=== PATIENT | male | born 1940 | race Caucasian/White ===

== ENCOUNTER 2024-05-26 14:07 | Inpatient (IN) ==
[2024-05-26] MEDS ORDERED: IOPAMIDOL 100 ML BOTTLE IV ONE (14:08)
[2024-05-26] MEDS: 0.9 % SODIUM CHLORIDE 500 ML IV ONE ×3 (14:29→16:42)
[2024-05-26] MEDS: ACETAMINOPHEN 1,000 MG/100 ML BAG IV ONE (14:45)
[2024-05-26 15:04] LABS: Basophils # (Auto) 0.04 K/mcL (0.00-0.30); Basophils % (Auto) 0.4 % (0.0-2.0); Eosinophils # (Auto) 0.11 K/mcL (0.00-0.70); Eosinophils % (Auto) 1.2 % (0.0-7.0); Hematocrit 40.3 % (40.1-51.0); Hemoglobin 12.9 g/dL (13.7-17.5); Lymphocytes % (Auto) 3.2 % (15.5-49.0); Mean Cell Volume 96.6 fL (80.0-100.0); Mean Platelet Volume 11.3 fL (8.8-12.5); Monocytes # (Auto) 0.65 K/mcL (0.10-0.90); Monocytes % (Auto) 6.9 % (1.0-12.0); Neutrophils % (Auto) 87.7 % (38.0-78.0); Platelet Count 117 K/mcL (140-440); RBC 4.17 M/mcL (4.63-6.08); Red Cell Distribution Width 16.7 % (11.5-14.5); WBC 9.4 K/mcL (4.5-11.0)
[2024-05-26 15:12] LABS: Prothrombin Time 13.9 sec (11.9-14.5)
[2024-05-26 15:14] LABS: ALT/SGPT 12 U/L (<40); AST/SGOT 19 U/L (<40); Albumin 4.3 gm/dL (3.2-5.2); Albumin/Globulin Ratio 2.3 (1.0-2.3); Alkaline Phosphatase 87 U/L (39-117); Bilirubin,Total 0.5 mg/dL (0.1-1.0); Blood Urea Nitrogen 17 mg/dL (8-23); Calcium 8.9 mg/dL (8.6-10.4); Carbon Dioxide 27 mmol/L (22-30); Chloride 102 mmol/L (96-108); Globulin 1.9 gm/dL (2.2-3.7); Glomerular Filtration Rate 55; Glucose 167 mg/dL (70-105); Potassium 4.8 mmol/L (3.3-5.1); Sodium 140 mmol/L (133-145)
[2024-05-26] MEDS: cefTRIAXone 2 GM in DEXTROSE 5% IN WATER 50 ML IV ONE (15:34)
[2024-05-26 16:23] LABS: Appearance,Urine Cloudy (Clear); Bilirubin,Urine Negative (Negative); Color,Urine Yellow; Culture Indicated,Urine Yes; Glucose,Urine (UA) Negative (Negative); Ketones,Urine 15 mg/dL (Negative); Leukocyte Esterase,Urine Small /uL (Negative); Nitrate,Urine Negative (Negative); Protein,Urine 100 mg/dL (Negative); Specific Gravity,Urine 1.015 (1.000-1.035); Urine Blood Small ery/mcL (Negative); Urine RBC 5 /hpf (0-3); Urine Squamous Epithelial Cell 1 /hpf (0-4); Urine WBC 50 /hpf (0-4); Urobilinogen,Urine Normal
[2024-05-26] MEDS: 0.9 % SODIUM CHLORIDE 250 ML IV SCH (16:42)
[2024-05-26] MEDS: NOREPINEPHRINE 250 ML IV SCH (16:42)
[2024-05-26] MEDS: 0.9 % SODIUM CHLORIDE 1,000 ML IV ONE (16:42)
[2024-05-26] MEDS: LEVOFLOXACIN 750 MG/150 ML BAG IV ONE (16:48)
[2024-05-26] MEDS ORDERED: DEXTROSE 31 GM ORAL.SUSP PO PRN (17:46)
[2024-05-26] MEDS ORDERED: LACTULOSE 20 GM/30 ML ORAL.SOL PO PRN (17:46)
[2024-05-26] MEDS ORDERED: IPRATROPIUM/ALBUTEROL 3 ML AMPUL.NEB NEB PRN (17:46)
[2024-05-26] MEDS ORDERED: DEXTROSE 50% 50 ML VIAL IV PRN (17:46)
[2024-05-26] MEDS ORDERED: ONDANSETRON 4 MG/2 ML VIAL IV PRN (17:46)
[2024-05-26] MEDS: 0.9 % SODIUM CHLORIDE 1,000 ML IV SCH (18:08)
[2024-05-26] MEDS: INSULIN LISPRO 1 UNIT/0.01 ML UNIT SQ SCH (18:16)
[2024-05-26] MEDS ORDERED: NITROGLYCERIN 0.4 MG TAB.SUBL SL PRN (18:19)
[2024-05-26] MEDS: ACETAMINOPHEN 325 MG TABLET PO PRN (18:58)
[2024-05-26] MEDS: MEMANTINE 10 MG TABLET PO SCH (20:08)
[2024-05-26] MEDS: DIVALPROEX 125 MG CAP.SPRINK PO SCH (20:08)
[2024-05-26] MEDS: QUEtiapine 100 MG TABLET PO SCH (20:08)
[2024-05-26] MEDS: DOCUSATE SODIUM 100 MG CAPSULE PO SCH ×2 (20:08→20:09)
[2024-05-26] MEDS: TAMSULOSIN 0.4 MG CAPSULE PO SCH (20:08)
[2024-05-26] MEDS: lamoTRIgine 100 MG TABLET PO SCH (20:08)
[2024-05-26] MEDS: 0.9 % SODIUM CHLORIDE 10 ML SYRINGE IV SCH (20:09)
[2024-05-27] MEDS: NOREPINEPHRINE 250 ML IV ONE (00:24)
[2024-05-27] MEDS: 0.9 % SODIUM CHLORIDE 250 ML IV SCH (00:24)
[2024-05-27] MEDS: NOREPINEPHRINE 250 ML IV SCH (00:24)
[2024-05-27 06:59] LABS: Basophils # (Auto) 0.03 K/mcL (0.00-0.30); Basophils % (Auto) 0.2 % (0.0-2.0); Eosinophils # (Auto) 0.01 K/mcL (0.00-0.70); Eosinophils % (Auto) 0.1 % (0.0-7.0); Hematocrit 36.1 % (40.1-51.0); Hemoglobin 11.5 g/dL (13.7-17.5); Lymphocytes # (Auto) 0.54 K/mcL (1.50-4.80); Lymphocytes % (Auto) 3.3 % (15.5-49.0); Mean Cell Volume 98.1 fL (80.0-100.0); Mean Corpuscular HGB Conc 31.9 g/dL (31.0-36.0); Mean Platelet Volume 11.3 fL (8.8-12.5); Monocytes # (Auto) 0.97 K/mcL (0.10-0.90); Monocytes % (Auto) 5.9 % (1.0-12.0); Neutrophils % (Auto) 89.9 % (38.0-78.0); Platelet Count 91 K/mcL (140-440); RBC 3.68 M/mcL (4.63-6.08); WBC 16.4 K/mcL (4.5-11.0)
[2024-05-27 07:08] LABS: ALT/SGPT 13 U/L (<40); AST/SGOT 18 U/L (<40); Albumin 3.6 gm/dL (3.2-5.2); Albumin/Globulin Ratio 2.3 (1.0-2.3); Alkaline Phosphatase 65 U/L (39-117); Bilirubin,Total 0.3 mg/dL (0.1-1.0); Blood Urea Nitrogen 17 mg/dL (8-23); Calcium 7.8 mg/dL (8.6-10.4); Carbon Dioxide 24 mmol/L (22-30); Chloride 107 mmol/L (96-108); Globulin 1.6 gm/dL (2.2-3.7); Glomerular Filtration Rate 45; Glucose 125 mg/dL (70-105); Potassium 4.4 mmol/L (3.3-5.1); Sodium 141 mmol/L (133-145)
[2024-05-27 07:40] LABS: Estimated Average Glucose(eAG) 137 mg/dL; Hemoglobin A1C 6.4 % Hgb (4.0-6.0)
[2024-05-27] MEDS: VITAMIN D3 25 MCG TABLET PO SCH (08:23)
[2024-05-27] MEDS: POLYETHYLENE GLYCOL 3350 17 GM PACKET PO SCH (08:23)
[2024-05-27] MEDS: ENOXAPARIN 40 MG/0.4 ML SYRINGE SQ SCH (08:24)
[2024-05-27] MEDS: ATORVASTATIN 20 MG TABLET PO SCH (08:24)
[2024-05-27] MEDS: MULTIVIT,THER IRON,CA,FA & MIN 1 TABLET PO SCH (08:24)
[2024-05-27] MEDS ORDERED: ENOXAPARIN 30 MG/0.3 ML SYRINGE SQ SCH (09:00)
[2024-05-27] MEDS: cefTRIAXone 2 GM in DEXTROSE 5% IN WATER 50 ML IV SCH (10:28)
[2024-05-27] MEDS: SENNOSIDES 1 TABLET PO PRN (20:18)
[2024-05-28 06:46] LABS: Basophils # (Auto) 0.04 K/mcL (0.00-0.30); Basophils % (Auto) 0.3 % (0.0-2.0); Eosinophils # (Auto) 0.04 K/mcL (0.00-0.70); Eosinophils % (Auto) 0.3 % (0.0-7.0); Hematocrit 33.1 % (40.1-51.0); Hemoglobin 10.2 g/dL (13.7-17.5); Lymphocytes # (Auto) 0.57 K/mcL (1.50-4.80); Lymphocytes % (Auto) 4.7 % (15.5-49.0); Mean Cell Volume 102.8 fL (80.0-100.0); Mean Corpuscular HGB Conc 30.8 g/dL (31.0-36.0); Mean Platelet Volume 10.9 fL (8.8-12.5); Monocytes # (Auto) 0.83 K/mcL (0.10-0.90); Monocytes % (Auto) 6.9 % (1.0-12.0); Neutrophils % (Auto) 87.2 % (38.0-78.0); Platelet Count 76 K/mcL (140-440); RBC 3.22 M/mcL (4.63-6.08); Red Cell Distribution Width 17.7 % (11.5-14.5)
[2024-05-28 06:53] LABS: ALT/SGPT 13 U/L (<40); AST/SGOT 18 U/L (<40); Albumin 2.9 gm/dL (3.2-5.2); Albumin/Globulin Ratio 1.7 (1.0-2.3); Alkaline Phosphatase 66 U/L (39-117); Bilirubin,Total 0.3 mg/dL (0.1-1.0); Blood Urea Nitrogen 18 mg/dL (8-23); Calcium 7.3 mg/dL (8.6-10.4); Carbon Dioxide 21 mmol/L (22-30); Chloride 106 mmol/L (96-108); Globulin 1.7 gm/dL (2.2-3.7); Glomerular Filtration Rate 55; Glucose 115 mg/dL (70-105); Potassium 3.7 mmol/L (3.3-5.1); Sodium 138 mmol/L (133-145)
[2024-05-28] MEDS: LEVOFLOXACIN 750 MG/150 ML BAG IV SCH (09:36)
[2024-05-28] MEDS: TAMSULOSIN 0.4 MG CAPSULE PO SCH (20:07)
[2024-05-28] MEDS: guaiFENesin/DEXTROMETHORPHAN 5ML UD CUP PO PRN (23:02)
[2024-05-29 07:06] LABS: Basophils # (Auto) 0.04 K/mcL (0.00-0.30); Basophils % (Auto) 0.4 % (0.0-2.0); Hematocrit 31.4 % (40.1-51.0); Hemoglobin 10.4 g/dL (13.7-17.5); Lymphocytes # (Auto) 0.67 K/mcL (1.50-4.80); Lymphocytes % (Auto) 6.8 % (15.5-49.0); Mean Cell Volume 95.2 fL (80.0-100.0); Mean Corpuscular HGB Conc 33.1 g/dL (31.0-36.0); Mean Platelet Volume 11.3 fL (8.8-12.5); Monocytes # (Auto) 0.73 K/mcL (0.10-0.90); Monocytes % (Auto) 7.4 % (1.0-12.0); Neutrophils % (Auto) 82.7 % (38.0-78.0); Platelet Count 77 K/mcL (140-440); Red Cell Distribution Width 17.9 % (11.5-14.5); WBC 9.8 K/mcL (4.5-11.0)
[2024-05-29 07:31] LABS: ALT/SGPT 18 U/L (<40); AST/SGOT 23 U/L (<40); Albumin 2.8 gm/dL (3.2-5.2); Albumin/Globulin Ratio 1.3 (1.0-2.3); Alkaline Phosphatase 71 U/L (39-117); Bilirubin,Total 0.3 mg/dL (0.1-1.0); Blood Urea Nitrogen 18 mg/dL (8-23); Calcium 7.9 mg/dL (8.6-10.4); Carbon Dioxide 25 mmol/L (22-30); Chloride 105 mmol/L (96-108); Globulin 2.2 gm/dL (2.2-3.7); Glomerular Filtration Rate 55; Glucose 117 mg/dL (70-105); Potassium 3.7 mmol/L (3.3-5.1); Sodium 138 mmol/L (133-145)
[2024-05-29] MEDS: LEVOFLOXACIN 750 MG TABLET PO SCH (08:46)
[2024-05-29] MEDS: ATORVASTATIN 40 MG TABLET PO SCH (08:47)
[2024-05-29] MEDS: IBUPROFEN 600 MG TABLET PO PRN (15:34)
[2024-05-30 07:13] LABS: Basophils # (Auto) 0.04 K/mcL (0.00-0.30); Basophils % (Auto) 0.4 % (0.0-2.0); Eosinophils # (Auto) 0.28 K/mcL (0.00-0.70); Hematocrit 37.5 % (40.1-51.0); Hemoglobin 12.3 g/dL (13.7-17.5); Lymphocytes # (Auto) 0.52 K/mcL (1.50-4.80); Lymphocytes % (Auto) 5.5 % (15.5-49.0); Mean Cell Volume 95.2 fL (80.0-100.0); Mean Corpuscular HGB Conc 32.8 g/dL (31.0-36.0); Mean Platelet Volume 11.2 fL (8.8-12.5); Monocytes # (Auto) 0.83 K/mcL (0.10-0.90); Monocytes % (Auto) 8.8 % (1.0-12.0); Neutrophils % (Auto) 81.3 % (38.0-78.0); Platelet Count 105 K/mcL (140-440); RBC 3.94 M/mcL (4.63-6.08); Red Cell Distribution Width 17.9 % (11.5-14.5); WBC 9.5 K/mcL (4.5-11.0)
[2024-05-30 07:40] LABS: ALT/SGPT 59 U/L (<40); AST/SGOT 64 U/L (<40); Albumin 3.2 gm/dL (3.2-5.2); Albumin/Globulin Ratio 1.2 (1.0-2.3); Alkaline Phosphatase 100 U/L (39-117); Bilirubin,Total 0.4 mg/dL (0.1-1.0); Blood Urea Nitrogen 16 mg/dL (8-23); Calcium 8.8 mg/dL (8.6-10.4); Carbon Dioxide 25 mmol/L (22-30); Chloride 104 mmol/L (96-108); Globulin 2.7 gm/dL (2.2-3.7); Glomerular Filtration Rate 61; Glucose 112 mg/dL (70-105); Potassium 3.8 mmol/L (3.3-5.1); Sodium 140 mmol/L (133-145)
[2024-05-31 06:56] LABS: Basophils # (Auto) 0.04 K/mcL (0.00-0.30); Basophils % (Auto) 0.5 % (0.0-2.0); Eosinophils # (Auto) 0.23 K/mcL (0.00-0.70); Eosinophils % (Auto) 3.1 % (0.0-7.0); Hematocrit 34.1 % (40.1-51.0); Hemoglobin 11.2 g/dL (13.7-17.5); Lymphocytes % (Auto) 6.8 % (15.5-49.0); Mean Corpuscular HGB Conc 32.8 g/dL (31.0-36.0); Mean Platelet Volume 10.4 fL (8.8-12.5); Monocytes # (Auto) 0.73 K/mcL (0.10-0.90); Monocytes % (Auto) 9.9 % (1.0-12.0); Neutrophils % (Auto) 78.5 % (38.0-78.0); Platelet Count 115 K/mcL (140-440); RBC 3.59 M/mcL (4.63-6.08); Red Cell Distribution Width 18.1 % (11.5-14.5); WBC 7.4 K/mcL (4.5-11.0)
[2024-05-31 07:27] LABS: ALT/SGPT 68 U/L (<40); AST/SGOT 55 U/L (<40); Albumin/Globulin Ratio 1.2 (1.0-2.3); Alkaline Phosphatase 72 U/L (39-117); Bilirubin,Direct < 0.2 mg/dL (0-0.3); Bilirubin,Total 0.3 mg/dL (0.1-1.0); Blood Urea Nitrogen 16 mg/dL (8-23); Calcium 8.6 mg/dL (8.6-10.4); Carbon Dioxide 28 mmol/L (22-30); Chloride 106 mmol/L (96-108); Globulin 2.5 gm/dL (2.2-3.7); Glomerular Filtration Rate 68; Glucose 128 mg/dL (70-105); Lactate Dehydrogenase 234 U/L (135-225); Phosphorous 3.1 mg/dL (2.5-4.5); Potassium 4.1 mmol/L (3.3-5.1); Sodium 142 mmol/L (133-145); Triglycerides 178 mg/dL (<150); Uric Acid 3.7 mg/dL (2.5-8.0)
[2024-05-31] MEDS: ENOXAPARIN 40 MG/0.4 ML SYRINGE SQ SCH (12:11)
== END 2024-06-01 11:45 | DRG 871 ==
LOC: ED 14:07 → ICU 17:30 → MEDSUR 05-28 22:42
PROVIDERS: ADMIT Internal Medicine; ATTEND Internal Medicine

== ENCOUNTER 2025-04-30 17:05 | Inpatient (IN) ==
[2025-04-30] MEDS: LIDOCAINE 4% TOP PATCH TOPICAL ONE (17:58)
[2025-04-30 18:06] LABS: Basophils # (Auto) 0.06 K/mcL (0.00-0.30); Basophils % (Auto) 0.7 % (0.0-2.0); Eosinophils # (Auto) 0.32 K/mcL (0.00-0.70); Eosinophils % (Auto) 4.0 % (0.0-7.0); Hematocrit 47.9 % (40.1-51.0); Hemoglobin 15.3 g/dL (13.7-17.5); Lymphocytes # (Auto) 1.29 K/mcL (1.50-4.80); Lymphocytes % (Auto) 16.1 % (15.5-49.0); Mean Corpuscular HGB Conc 31.9 g/dL (31.0-36.0); Monocytes # (Auto) 0.88 K/mcL (0.10-0.90); Monocytes % (Auto) 11.0 % (1.0-12.0); Neutrophils % (Auto) 67.2 % (38.0-78.0); Platelet Count 141 K/mcL (140-440); RBC 4.98 M/mcL (4.63-6.08); WBC 8.0 K/mcL (4.5-11.0)
[2025-04-30 18:06] LABS: Alcohol,Blood < 0.010 gm/dL (<0.010)
[2025-04-30 18:08] LABS: Anion Gap 12.4 (8.0-16.0); Blood Urea Nitrogen 26 mg/dL (8-23); Calcium 9.4 mg/dL (8.6-10.4); Carbon Dioxide 27 mmol/L (22-30); Chloride 103 mmol/L (96-108); Glucose 127 mg/dL (70-105); Potassium 4.5 mmol/L (3.3-5.1); Sodium 143 mmol/L (133-145)
[2025-04-30 18:18] LABS: VBG HCO3 30.5 mmol/L (24.0-28.0); VBG PCO2 48.4 mmHg (41.0-51.0); VBG PH 7.42 U (7.32-7.42); VBG PO2 22.5 mmHg (25.0-40.0)
[2025-04-30] MEDS: 0.9 % SODIUM CHLORIDE 1,000 ML IV SCH (19:45)
[2025-04-30] MEDS: ACETAMINOPHEN 500 MG TABLET PO ONE (20:16)
[2025-04-30 20:41] LABS: Bilirubin,Urine Negative (Negative); Color,Urine YELLOW; Glucose,Urine (UA) >=500 mg/dL (Negative); Ketones,Urine Negative (Negative); Leukocyte Esterase,Urine Negative /uL (Negative); Mucus,Urine FEW /hpf; PH,Urine 6.0 (5.0-9.0); Protein,Urine Negative (Negative); Specific Gravity,Urine 1.011 (1.000-1.035); Urobilinogen,Urine Negative
[2025-04-30] MEDS: LEVOFLOXACIN 750 MG/150 ML BAG IV ONE (20:41)
[2025-04-30 20:46] LABS: Barbiturate Screen,Urine None detected; Benzodiazepines Screen,Urine None detected; Fentanyl, Urine Screen None Detected; Opiate Screen,Urine None detected; Oxycodone, Urine Screen None detected; Phencyclidine Screen,Urine None detected
[2025-04-30 21:45] LABS: C-Reactive Protein < 0.30 mg/dL (0.03-0.80)
[2025-04-30 21:56] LABS: Anisocytosis 1+ (None Seen); Hypochromasia 1+ (None Seen); Macrocytosis 1+ (None Seen); RBC Morphology ABNORMAL (Normal)
[2025-04-30 23:48] LABS: Hepatitis A Antibody IgM Non-Reactive (Non-Reactive); Hepatitis B Surface Antigen Negative (Negative)
[2025-05-01] MEDS ORDERED: DEXTROSE 31 GM ORAL.SUSP PO PRN (00:36)
[2025-05-01] MEDS ORDERED: POTASSIUM CHLORIDE 40 MEQ in DEXTROSE 5% IN WATER 500 ML IV PRN (00:36)
[2025-05-01] MEDS ORDERED: DEXTROSE 50% 50 ML VIAL IV PRN (00:36)
[2025-05-01] MEDS ORDERED: ONDANSETRON 4 MG/2 ML VIAL IV PRN (00:36)
[2025-05-01] MEDS ORDERED: POLYETHYLENE GLYCOL 3350 17 GM PACKET PO PRN (00:36)
[2025-05-01] MEDS ORDERED: IPRATROPIUM/ALBUTEROL 3 ML AMPUL.NEB NEB PRN (00:36)
[2025-05-01] MEDS ORDERED: MAGNESIUM SULFATE 2 GM/50 ML BAG IV PRN (00:36)
[2025-05-01] MEDS ORDERED: SENNOSIDES 1 TABLET PO PRN (00:36)
[2025-05-01] MEDS ORDERED: POTASSIUM CHLORIDE 20 MEQ TABLET PO PRN ×2 (00:36)
[2025-05-01] MEDS ORDERED: DIAZEPAM 10 MG/2 ML SYRINGE IV PRN (00:36)
[2025-05-01] MEDS ORDERED: METOCLOPRAMIDE 10 MG/2 ML VIAL IV PRN (00:36)
[2025-05-01] MEDS: 0.9 % SODIUM CHLORIDE 1,000 ML IV SCH (01:15)
[2025-05-01] MEDS: AZITHROMYCIN 500 MG in DEXTROSE 5% IN WATER 250 ML IV SCH (01:16)
[2025-05-01] MEDS: cefTRIAXone 1 GM VIAL IV SCH (01:39)
[2025-05-01] MEDS: cefTRIAXone 1 GM VIAL ONE (01:55)
[2025-05-01] MEDS: ACETAMINOPHEN 325 MG TABLET PO PRN (02:27)
[2025-05-01] MEDS: ACETAMINOPHEN 325 MG TABLET PO ONE (03:16)
[2025-05-01 06:07] LABS: Basophils # (Auto) 0.04 K/mcL (0.00-0.30); Basophils % (Auto) 0.5 % (0.0-2.0); Eosinophils # (Auto) 0.29 K/mcL (0.00-0.70); Eosinophils % (Auto) 3.8 % (0.0-7.0); Hematocrit 42.6 % (40.1-51.0); Hemoglobin 13.7 g/dL (13.7-17.5); Lymphocytes # (Auto) 1.02 K/mcL (1.50-4.80); Lymphocytes % (Auto) 13.3 % (15.5-49.0); Mean Corpuscular HGB Conc 32.2 g/dL (31.0-36.0); Monocytes # (Auto) 0.79 K/mcL (0.10-0.90); Monocytes % (Auto) 10.3 % (1.0-12.0); Neutrophils % (Auto) 71.2 % (38.0-78.0); Platelet Count 128 K/mcL (140-440); RBC 4.49 M/mcL (4.63-6.08); WBC 7.7 K/mcL (4.5-11.0)
[2025-05-01 06:27] LABS: ALT/SGPT 17 U/L (<40); AST/SGOT 15 U/L (<40); Albumin 3.6 gm/dL (3.2-5.2); Albumin/Globulin Ratio 2.3 (1.0-2.3); Alkaline Phosphatase 67 U/L (39-117); Anion Gap 9.0 (8.0-16.0); Bilirubin,Direct < 0.2 mg/dL (0-0.3); Bilirubin,Total 0.4 mg/dL (0.1-1.0); Blood Urea Nitrogen 20 mg/dL (8-23); Calcium 8.2 mg/dL (8.6-10.4); Carbon Dioxide 24 mmol/L (22-30); Chloride 106 mmol/L (96-108); Globulin 1.6 gm/dL (2.2-3.7); Glucose 127 mg/dL (70-105); Phosphorous 3.3 mg/dL (2.5-4.5); Potassium 4.0 mmol/L (3.3-5.1); Sodium 139 mmol/L (133-145); Triglycerides 79 mg/dL (<150); Uric Acid 4.6 mg/dL (2.5-8.0)
[2025-05-01] MEDS: INSULIN LISPRO 1 UNIT/0.01 ML UNIT SQ SCH (07:53)
[2025-05-01] MEDS: ENOXAPARIN 40 MG/0.4 ML SYRINGE SQ SCH (10:41)
[2025-05-01] MEDS: DOCUSATE SODIUM 100 MG CAPSULE PO SCH (10:41)
[2025-05-02 06:03] LABS: Basophils # (Auto) 0.06 K/mcL (0.00-0.30); Basophils % (Auto) 0.8 % (0.0-2.0); Eosinophils # (Auto) 0.30 K/mcL (0.00-0.70); Eosinophils % (Auto) 4.2 % (0.0-7.0); Hematocrit 44.7 % (40.1-51.0); Hemoglobin 14.4 g/dL (13.7-17.5); Lymphocytes # (Auto) 1.01 K/mcL (1.50-4.80); Lymphocytes % (Auto) 14.2 % (15.5-49.0); Mean Corpuscular HGB Conc 32.2 g/dL (31.0-36.0); Monocytes # (Auto) 0.82 K/mcL (0.10-0.90); Monocytes % (Auto) 11.6 % (1.0-12.0); Neutrophils % (Auto) 68.6 % (38.0-78.0); Platelet Count 126 K/mcL (140-440); RBC 4.69 M/mcL (4.63-6.08); WBC 7.1 K/mcL (4.5-11.0)
[2025-05-02 06:28] LABS: ALT/SGPT 16 U/L (<40); AST/SGOT 16 U/L (<40); Albumin 3.6 gm/dL (3.2-5.2); Albumin/Globulin Ratio 2.0 (1.0-2.3); Alkaline Phosphatase 72 U/L (39-117); Anion Gap 10.0 (8.0-16.0); Bilirubin,Direct 0.2 mg/dL (<0.3); Bilirubin,Total 0.4 mg/dL (0.1-1.0); Blood Urea Nitrogen 17 mg/dL (8-23); Calcium 8.5 mg/dL (8.6-10.4); Carbon Dioxide 25 mmol/L (22-30); Chloride 108 mmol/L (96-108); Globulin 1.8 gm/dL (2.2-3.7); Glucose 94 mg/dL (70-105); Phosphorous 3.3 mg/dL (2.5-4.5); Potassium 4.5 mmol/L (3.3-5.1); Sodium 143 mmol/L (133-145); Triglycerides 104 mg/dL (<150); Uric Acid 4.6 mg/dL (2.5-8.0)
[2025-05-02] MEDS: ATORVASTATIN 40 MG TABLET PO SCH (09:12)
[2025-05-02] MEDS: PANTOPRAZOLE 40 MG TABLET PO SCH (09:12)
[2025-05-02] MEDS: MEMANTINE 10 MG TABLET PO SCH (09:12)
[2025-05-02] MEDS: AZITHROMYCIN 250 MG TABLET PO SCH (09:12)
[2025-05-02] MEDS: TAMSULOSIN 0.4 MG CAPSULE PO SCH (20:44)
[2025-05-03 12:18] VITALS: TEMP 97.7
[2025-05-03 13:50] VITALS: O2SAT 94
[2025-05-10 09:09] LABS: Lamotrigine (Lamictal)-SO 18.2 ug/mL (2.0-20.0)
== END 2025-05-03 13:05 | DRG 71 ==
LOC: ED 17:05 → ICU 05-01 00:35
PROVIDERS: ADMIT Internal Medicine; ATTEND Internal Medicine